=== PATIENT | male | born 1975 | race Caucasian/White ===

== ENCOUNTER 2022-04-09 09:08 | Emergency (ER) | payer OTHER ==
[2022-04-09 10:55] LABS: Absolute Lymphocytes (CBC) 1.1 K/uL (0.7-4.9); Hematocrit 36.4 % (39.6-49.0); Lymphocytes % 20.8 % (15.3-44.8); MPV 8.5 fL (7.6-11.3); RBC Red Blood Cell Count 3.73 M/uL (4.33-5.43)
[2022-04-09 11:51] LABS: Magnesium 2.3 mg/dL (1.8-2.4); Potassium 3.5 mmol/L (3.5-5.1); Troponin High Sensitivity 39.5 pg/mL (<58.9)
--- NOTE | 2022-04-09 12:01 | RAD REPORT ---
EXAM DESCRIPTION: Gabriela Single View04/09/2022 10:30 am CLINICAL HISTORY: sob COMPARISON: none FINDINGS: The lungs appear clear of acute infiltrate. The heart is normal size IMPRESSION: No acute abnormalities displayed
--- NOTE | 2022-04-09 13:16 | EDPHYS ---
Physician Documentation [facility] Name: Ngozi Magallon Age: 47 yrs Sex: Male : 1975 Arrival Date: 04/09/2022 Time: 09:13 Bed Treatment Private MD: ED Physician Juan Pablo Hou HPI: 04/09 10:00 This 47 yrs old Male presents to ER via Ambulatory with complaints of needs dialysis, cp Breathing Difficulty. 10:00 The patient has shortness of breath with light activity. cp 10:00 Onset: The symptoms/episode began/occurred today. Duration: The symptoms are cp continuous. Associated signs and symptoms: Pertinent negatives: chest pain, non-productive cough, productive cough, diaphoresis, fever, vomiting. Severity of symptoms: in the emergency department the symptoms are unchanged despite home interventions. Patient reports she is a dialysis patient and is visiting from out of town. Reports last dialysis was and usual schedule is Monday, and Monday. Historical: - Allergies: 09:53 No Known Allergies; jl7 - PMHx: 09:53 Hypertensive disorder; Dialysis t-t-s; ESRD; jl7 - PSHx: 09:53 gastric bypass; jl7 - Immunization history:: Adult Immunizations unknown. - Social history:: Smoking status: Patient denies any tobacco usage or history of. ROS: 10:05 Constitutional: Negative for body aches, chills, fever, poor PO intake. cp 10:05 Eyes: Negative for injury, pain, redness, and discharge. cp 10:05 Neck: Negative for pain with movement, pain at rest, stiffness. 10:05 Cardiovascular: Negative for chest pain, edema, palpitations. 10:05 Respiratory: Positive for shortness of breath, Negative for cough, wheezing. 10:05 Abdomen/GI: Negative for abdominal pain, nausea, vomiting, and diarrhea. 10:05 Neuro: Negative for altered mental status, dizziness, headache, syncope, weakness. 10:05 All other systems are negative. Exam: 10:20 Constitutional: The patient appears in no acute distress, alert, awake, cp non-diaphoretic, non-toxic, well developed, well nourished. 10:20 Head/Face: Normocephalic, atraumatic. cp 10:20 Eyes: Periorbital structures: appear normal, Conjunctiva: normal, no exudate, no injection, Sclera: no appreciated abnormality, Lids and lashes: appear normal, bilaterally. 10:20 ENT: External ear(s): are unremarkable, Nose: is normal, Mouth: Lips: moist, Oral mucosa: moist, Posterior pharynx: Airway: no evidence of obstruction, patent. 10:20 Chest/axilla: Inspection: normal. 10:20 Cardiovascular: Rate: tachycardic, Rhythm: regular, Pulses: Pulses are 2+ in right radial artery and left radial artery. Edema: is not appreciated, JVD: is not appreciated. 10:20 Respiratory: the patient does not display signs of respiratory distress, Respirations: normal, no use of accessory muscles, no retractions, labored breathing, is not present, Breath sounds: are clear throughout, no decreased breath sounds, no stridor, no wheezing. 10:20 Abdomen/GI: Exam negative for discomfort, distension, guarding, Inspection: abdomen appears normal. 10:20 Neuro: Orientation: to person, place \T\ time. Mentation: is normal, Motor: moves all fours, strength is normal, Sensation: is normal, Gait: is steady, at a normal pace, without difficulty. 12:27 ECG was reviewed by the Attending Physician. cp Vital Signs: 09:44 BP 145 / 102; Pulse 107; Resp 19; Temp 97.4; Pulse Ox 96% ; Weight 99.5 kg (R); jl7 13:22 BP 139 / 99; Pulse 100; Resp 18; Pulse Ox 97% on R/A; Pain 0/10; ld1 MDM: 12:07 Patient medically screened. cp 13:15 Data reviewed: vital signs, nurses notes, lab test result(s), EKG, radiologic studies, cp plain films. 13:15 Test interpretation: by ED physician or midlevel provider: ECG, plain radiologic cp studies. Counseling: I had a detailed discussion with the patient and/or guardian regarding: the historical points, exam findings, and any diagnostic results supporting the discharge/admit diagnosis, the presence of at least one elevated blood pressure reading (>120/80) during this emergency department visit, lab results, radiology results, to return to the emergency department if symptoms worsen or persist or if there are any questions or concerns that arise at home. ED course: VSS. Discussed results of labs, EKG and radiology studies. No need for emergent dialysis at this time. Will discharge for continued monitoring. 04/09 09:49 Order name: Basic Metabolic Panel; Complete Time: 13:07 cp 04/09 13:07 Interpretation: Normal except: CRE 10.50; GFR 6. cp 04/09 09:49 Order name: CBC with Diff; Complete Time: 13:07 cp 04/09 13:08 Interpretation: Normal except: RBC 3.73; HGB 12.0; HCT 36.4; RDW 19.2. cp 04/09 09:49 Order name: Magnesium; Complete Time: 13:07 cp 04/09 09:49 Order name: NT PRO-BNP; Complete Time: 13:07 cp 04/09 13:08 Interpretation: Abnormal: NT PRO-BNP 7183. cp 04/09 09:49 Order name: Troponin HS; Complete Time: 13:07 cp 04/09 09:49 Order name: XRAY Chest (1 view); Complete Time: 13:07 cp 04/09 09:49 Order name: EKG; Complete Time: 09:50 cp 04/09 09:49 Order name: Cardiac monitoring; Complete Time: 12:18 cp 04/09 09:49 Order name: EKG - Nurse/Tech; Complete Time: 12:29 cp 04/09 09:49 Order name: IV Saline Lock; Complete Time: 10:48 cp 04/09 09:49 Order name: Labs collected and sent; Complete Time: 10:48 cp 04/09 09:49 Order name: O2 Per Protocol; Complete Time: 12:18 cp 04/09 09:49 Order name: O2 Sat Monitoring; Complete Time: 12:18 cp EC:27 Rate is 83 beats/min. Rhythm is regular. CO interval is normal. QRS interval is normal. cp QT interval is normal. T waves are Inverted in leads aVL, aVR. Interpreted by me. Reviewed by me. Administered Medications: 13:16 Drug: Lasix (furosemide) 60 mg Route: IVP; Site: right antecubital; ld1 13:22 Follow up: Response: No adverse reaction ld1 Disposition: 15:23 Co-signature as Attending Physician, Juan Pablo Hou MD I agree with the assessment and kdr plan of care. Disposition Summary: 04/09/22 13:15 Discharge Ordered Location: Home cp Problem: chronic cp Symptoms: are unchanged cp Condition: Stable cp Diagnosis - Chronic kidney disease, unspecified cp - Shortness of breath cp Followup: cp - With: Private Physician - When: 1 - 2 days - Reason: Recheck today's complaints Discharge Instructions: - Discharge Summary Sheet cp - Shortness of Breath, Adult cp - Food Basics for Chronic Kidney Disease cp - Dialysis cp - End-Stage Kidney Disease cp Forms: - Medication Reconciliation Form cp - Thank You Letter cp - Antibiotic Education cp - Prescription Opioid Use cp Prescriptions: - Lasix 20 mg Oral Tablet - take 1 tablet by ORAL route once daily for 5 days; 5 tablet; Refills: 0, cp Product Selection Permitted Signatures: Dispatcher [employer] Juan Pablo Lo MD MD [facility] Keaton Kenney PA PA cp Leal, Jahala, RN RN jl7 Su Arnold RN RN ld1
--- NOTE | 2022-04-09 13:16 | ER ---
Nurse's Notes [facility] Name: Ngozi aMgallon Age: 47 yrs Sex: Male : 1975 Arrival Date: 04/09/2022 Time: 09:13 Bed Treatment Private MD: Diagnosis: Chronic kidney disease, unspecified;Shortness of breath Presentation: 04/09 09:44 Chief complaint: Patient states: From out of town, last dialysis , reports mild jl7 SOB and brain fog. Coronavirus screen: At this time, the client does not indicate any symptoms associated with coronavirus-19. Ebola Screen: No symptoms or risks identified at this time. Initial Sepsis Screen: Does the patient meet any 2 criteria? No. Patient's initial sepsis screen is negative. Does the patient have a suspected source of infection? No. Patient's initial sepsis screen is negative. Risk Assessment: Do you want to hurt yourself or someone else? Patient reports no desire to harm self or others. Onset of symptoms is unknown. 09:44 Method Of Arrival: Ambulatory jl7 09:44 Acuity: JOHAN 3 jl7 Historical: - Allergies: 09:53 No Known Allergies; jl7 - PMHx: 09:53 Hypertensive disorder; Dialysis t-t-s; ESRD; jl7 - PSHx: 09:53 gastric bypass; jl7 - Immunization history:: Adult Immunizations unknown. - Social history:: Smoking status: Patient denies any tobacco usage or history of. Screenin:22 Abuse screen: Denies threats or abuse. Denies injuries from another. Nutritional ld1 screening: No deficits noted. Tuberculosis screening: No symptoms or risk factors identified. Fall Risk None identified. Assessment: 13:22 Reassessment: See triage assessment. Pain: Denies pain. Cardiovascular: Capillary ld1 refill < 3 seconds Patient's skin is warm and dry. Rhythm is sinus rhythm. Respiratory: Airway is patent Respiratory effort is even, unlabored, Breath sounds are clear bilaterally. Vital Signs: 09:44 BP 145 / 102; Pulse 107; Resp 19; Temp 97.4; Pulse Ox 96% ; Weight 99.5 kg (R); jl7 13:22 BP 139 / 99; Pulse 100; Resp 18; Pulse Ox 97% on R/A; Pain 0/10; ld1 ED Course: 09:13 Patient arrived in ED. am2 09:26 Keaton Kenney PA is PHCP. cp 09:26 Juan Pablo Hou MD is Attending Physician. cp 09:53 Triage completed. jl7 09:53 Arm band placed on right wrist. jl7 10:32 XRAY Chest (1 view) In Process Unspecified. EDMS 10:45 Initial lab(s) drawn, by me, sent to lab. Inserted saline lock: 20 gauge in right kj1 antecubital area, using aseptic technique. Blood collected. 12:17 Su Arnold, RN is Primary Nurse. ld1 12:30 EKG done, by ED staff, reviewed by Keaton GUTIERREZ. mb7 13:22 Patient has correct armband on for positive identification. Placed in gown. Bed in low ld1 position. Call light in reach. Side rails up X2. cafeteria monitor on. Pulse ox on. NIBP on. Door closed. Noise minimized. Warm blanket given. 13:22 No provider procedures requiring assistance completed. IV discontinued, intact, ld1 bleeding controlled, No redness/swelling at site. Administered Medications: 13:16 Drug: Lasix (furosemide) 60 mg Route: IVP; Site: right antecubital; ld1 13:22 Follow up: Response: No adverse reaction ld1 Medication: 13:22 VIS not applicable for this client. ld1 Outcome: 13:15 Discharge ordered by . cp 13:24 Patient left the ED. ld1 Signatures: Dispatcher [employer] EDAR Keaton Kenney PA PA cp Nadia Macdonald RN RN jl7 Torri Stark am2 Anupama Alvarez kj1 Su Arnold, EMMA RN ld1 Yaquelin Barrera mb7
[2022-04-09] MEDS ORDERED: FUROSEMIDE 20 MG/ 2ML VIAL ONE (13:22)
[2022-04-09 13:31] VITALS: TEMP 97.4
[2022-04-09 13:32] VITALS: BP 139/99; O2SAT 97
--- NOTE | 2022-04-12 12:24 | EKG ---
Test Date: 2022-04-09 Test Time: 12:23:43 [employer] Employee: MB MEASUREMENT RESULTS: Intervals: Rate: 83 MS: 162 QRSD: 98 QT: 392 QTc: 460 [place]: P: 49 MS: 162 QRS: 33 T: 82 INTERPRETIVE STATEMENTS: Normal sinus rhythm with sinus arrhythmia Nonspecific ST and T wave abnormality Abnormal ECG No previous ECG available for comparison Electronically Signed On 04-12-22 12:17:22 CDT by Spencer Santamaria
== END 2022-04-09 13:24 | disposition home or self-care (01) ==
LOC: ER 09:08
DX: R06.02 Shortness of breath (principal); I12.0 Hypertensive chronic kidney disease with stage 5 chronic kidney disease or end stage renal disease; N18.6 End stage renal disease; Z99.2 Dependence on renal dialysis; Z98.84 Bariatric surgery status
CPT/HCPCS: 93005; 85025; 80048; 36415; 83735; 84484; 83880; 71045; 96374; 99284; J1940